=== PATIENT | female | born 1930 | race Caucasian/White ===

== ENCOUNTER 2019-05-08 20:44 | Emergency (ER) | payer OTHER ==
[~2019-05-08] VITALS: Ht 149.9 cm; Wt 49.9 kg
[2019-05-08 20:44] VITALS: BP_SYST 146
[~2019-05-08 20:44] MED LIST: NITR0.4T47 SL
--- NOTE | 2019-05-08 20:44 | NUR ---
Patient to ER bed 1 to gown for evaluation. Side rails up.
--- NOTE | 2019-05-08 20:55 | NUR ---
ER at bedside examining patient.
--- NOTE | 2019-05-08 20:55 | NUR ---
Pt brought in by ambulance for medical clearance to be admitted to [facility] facility. Pt awake, alert, mildly confused. normal mentation for patient. Pt denies chest pain, nausea, vomiting, diarrhea, shortness of breath. Pt denies any other complaint at this time. Pt appears to be in no acute distress at this time resting comfortably in ed bed without complaint. Pt Vss, given blanket for comfort.
[2019-05-08 21:20] LABS: BASOPHILS # (AUTO) 0.1 K/uL (0.0-0.2); BASOPHILS % (AUTO) 0.9 % (0.0-2.0); EOSINOPHILS # (AUTO) 0.1 K/uL (0.0-0.4); EOSINOPHILS % (AUTO) 1.4 % (0.0-4.0); HEMATOCRIT 37.3 % (36-48); HEMOGLOBIN 12.6 g/dL (12.0-16.0); LYMPHOCYTES # (AUTO) 1.1 K/uL (1.0-5.5); LYMPHOCYTES % (AUTO) 16.8 % (20.5-51.5); MEAN CORPUSCULAR HEMOGLOBIN 31 pg (27-31); MEAN CORPUSCULAR HGB CONC 34 % (32-36); MEAN CORPUSCULAR VOLUME 91 fL (79.0-98.0); MONOCYTES # (AUTO) 0.7 K/uL (0.0-1.0); MONOCYTES % (AUTO) 11.1 % (1.7-9.3); NEUTROPHILS # (AUTO) 4.5 K/uL (1.8-7.7); NEUTROPHILS % (AUTO) 69.8 % (40.0-70.0); PLATELET COUNT (AUTO) 298 K/uL (130-430); RED CELL DISTRIBUTION WIDTH 15.4 % (9.0-15.0); WHITE BLOOD COUNT (AUTO) 6.5 K/uL (4.8-10.8)
--- NOTE | 2019-05-08 21:27 | NUR ---
MRSA Swab performed on patient
[2019-05-08 21:39] LABS: ANION GAP 6 (5-15); CALCIUM 8.5 mg/dL (8.4-11.0); CHLORIDE 93 mmol/L (98-107); CREATININE 0.81 mg/dL (0.55-1.30); GLUCOSE 125 mg/dL (70-99); SODIUM SERUM 125 mmol/L (136-145); UREA NITROGEN, BLOOD 15 mg/dL (8-21)
[2019-05-08 21:46] LABS: ALANINE AMINOTRANSFERASE 29 U/L (12-78); ALBUMIN 3.4 g/dL (3.4-4.8); ASPARTATE AMINOTRANSFERASE 31 U/L (10-37); TOTAL BILIRUBIN 0.4 mg/dL (0.0-1.0)
--- NOTE | 2019-05-08 22:27 | NUR ---
Pt resting comfortably in ED bed. Additional blanket provided for comfort.
--- NOTE | 2019-05-08 23:13 | NUR ---
Pt provided urine sample
[2019-05-08 23:16] LABS: BILIRUBIN,URINE NEGATIVE (NEGATIVE); CLARITY/URINE CLEAR (CLEAR); COLOR,URINE YELLOW (YELLOW); GLUCOSE,URINE NEGATIVE (NEGATIVE); KETONES,URINE NEGATIVE (NEGATIVE); LEUKOCYTE ESTERASE ,URINE TRACE (NEGATIVE); NITRITE, URINE NEGATIVE (NEGATIVE); PROTEIN URINE NEGATIVE (NEGATIVE); UROBILINOGEN,URINE 0.2 (0.2-1.0)
[2019-05-08 23:17] LABS: BLOOD, URINE TRACE (NEGATIVE)
[2019-05-08 23:24] LABS: BACTERIA,URINE FEW /HPF (None Seen)
[2019-05-08 23:27] LABS: BARBITURATE, URINE NEGATIVE (NEG <=200); BENZODIAZEPINE, URINE NEGATIVE (NEG <=150); CANNABINOID, URINE NEGATIVE (NEG <=50); COCAINE, URINE NEGATIVE (NEG <=150); METHAMPHETAMINES SCREEN,URINE NEGATIVE (NEG <=500); OPIATE, URINE NEGATIVE (NEG <=100); PHENCYCLIDINE SCREEN,URINE NEGATIVE (NEG <=25); UR TRICYCLIC ANTIDEPRESSANTS NEGATIVE (NEG <=300); URINE AMPHETAMINE NEGATIVE (NEG <=500); URINE METHADONE NEGATIVE (NEG <=200); URINE OXYCODONE SCREEN NEGATIVE (NEG <=100); URINE PROPOXYPHENE SCREEN NEGATIVE (NEG <=300)
[2019-05-08] MEDS ORDERED: NACL 0.9% 1,000 ML IV ONE (23:30)
--- NOTE | 2019-05-09 00:12 | NUR ---
Pt resting comfortably in ED bed. Awaiting completion of IV fluids and re-draw of labs.
[2019-05-09 02:09] LABS: ANION GAP 6 (5-15); CALCIUM 7.8 mg/dL (8.4-11.0); CHLORIDE 98 mmol/L (98-107); GLUCOSE 98 mg/dL (70-99); POTASSIUM 3.9 mmol/L (3.5-5.1); SODIUM SERUM 128 mmol/L (136-145); UREA NITROGEN, BLOOD 13 mg/dL (8-21)
--- NOTE | 2019-05-09 02:15 | NUR ---
Pt resting in ED bed Comfortably. Pt respiratory rate and effort unlabored, regular. Pt showing no acute signs of distress.
--- NOTE | 2019-05-09 02:18 | NUR ---
Pt assisted to use restroom
--- NOTE | 2019-05-09 04:26 | NUR ---
Pt resting in ED bed Comfortably. Pt respiratory rate and effort unlabored, regular. Pt showing no acute signs of distress.
[2019-05-09] MEDS ORDERED: NACL 0.9% 1,000 ML IV ONE (05:15)
[2019-05-09 08:13] LABS: ANION GAP 5 (5-15); CALCIUM 7.9 mg/dL (8.4-11.0); CHLORIDE 102 mmol/L (98-107); CREATININE 0.68 mg/dL (0.55-1.30); GLUCOSE 78 mg/dL (70-99); POTASSIUM 4.1 mmol/L (3.5-5.1); SODIUM SERUM 132 mmol/L (136-145); UREA NITROGEN, BLOOD 11 mg/dL (8-21)
[2019-05-09 10:21] VITALS: BP_SYST 169
== END 2019-05-09 10:21 ==
LOC: SED 20:44
DX: E87.1 Hypo-osmolality and hyponatremia (principal); Z02.89 Encounter for other administrative examinations
CPT/HCPCS: 36415; 80048; 80053; 80307; 81000; 84443; 85025; 87081; 87086; 99285; J7030 ×2

== ENCOUNTER 2019-05-09 22:09 | Outpatient (CLI) | payer OTHER | END 2019-05-09 23:00 | disposition home or self-care (01) | LOC: SLB 22:09 | PROVIDERS: ATTEND Psychiatry & Neurology Psychiatry | DX: Z00.00 Encounter for general adult medical examination without abnormal findings (principal) | CPT/HCPCS: 87081 ==

== ENCOUNTER 2019-05-11 09:42 | Outpatient (CLI) | payer OTHER ==
[2019-05-11 11:14] LABS: ANION GAP 3 (5-15); CALCIUM 8.9 mg/dL (8.4-11.0); CHLORIDE 96 mmol/L (98-107); CHOLESTEROL 214 mg/dL (<200); CREATININE 0.68 mg/dL (0.55-1.30); GLUCOSE 74 mg/dL (70-99); HDL CHOLESTEROL 63 mg/dL (>55); LDL CHOLESTEROL 140 mg/dL (<100); POTASSIUM 4.1 mmol/L (3.5-5.1); SODIUM SERUM 127 mmol/L (136-145); TRIGLYCERIDES 57 mg/dL (30-150); UREA NITROGEN, BLOOD 8 mg/dL (8-21)
[2019-05-11 11:39] LABS: THYROID STIMULATING HORMONE 3.47 uIu/mL (0.36-3.74)
== END 2019-05-11 15:00 | disposition home or self-care (01) ==
LOC: SLB 09:42
PROVIDERS: ATTEND Psychiatry & Neurology Psychiatry
DX: Z00.00 Encounter for general adult medical examination without abnormal findings (principal)
CPT/HCPCS: 36415; 80048; 80061; 83036; 84443-TC; 87081

== ENCOUNTER 2019-05-18 14:48 | Outpatient (CLI) | payer OTHER ==
[2019-05-18 15:52] LABS: ANION GAP 9 (5-15); CALCIUM 8.3 mg/dL (8.4-11.0); CHLORIDE 87 mmol/L (98-107); CREATININE 0.83 mg/dL (0.55-1.30); GLUCOSE 152 mg/dL (70-99); POTASSIUM 4.1 mmol/L (3.5-5.1); UREA NITROGEN, BLOOD 14 mg/dL (8-21)
[2019-05-18 15:58] LABS: SODIUM SERUM 119 mmol/L (136-145)
[2019-05-19] MEDS ORDERED: FAMO20TA8 PO (00:19)
[2019-05-19] MEDS ORDERED: LISI-652 PO (00:19)
[2019-05-19] MEDS ORDERED: HYDR-4038 PO (00:19)
[2019-05-19] MEDS ORDERED: ACET325T53 PO (00:19)
[2019-05-19] MEDS ORDERED: IBUP-2018 PO (00:19)
[2019-05-19] MEDS ORDERED: MAG-86 PO (00:19)
[2019-05-19] MEDS ORDERED: MEMA5TAB PO (00:19)
[2019-05-19] MEDS ORDERED: DOCU-144 PO (00:19)
[2019-05-19] MEDS ORDERED: MOM PO (00:19)
[2019-05-19] MEDS ORDERED: ZOLP5TAB2 PO (00:19)
[2019-05-19] MEDS ORDERED: LORA-258 PO (00:19)
== END 2019-05-18 21:07 | disposition home or self-care (01) ==
LOC: SLB 14:48
PROVIDERS: ATTEND Psychiatry & Neurology Psychiatry
DX: F29 Unspecified psychosis not due to a substance or known physiological condition (principal); I10 Essential (primary) hypertension; E87.1 Hypo-osmolality and hyponatremia
CPT/HCPCS: 36415; 80048

== ENCOUNTER 2019-05-18 17:31 | Inpatient (IN) | payer OTHER ==
[~2019-05-18] VITALS: Ht 142.2 cm; Wt 45.9 kg
--- NOTE | 2019-05-18 22:59 | NUR ---
LATE ENTRY FOR 2229 : PT GOT ADMITTED DIRECT ADMIT FROM [facility] UNDER DR SAHA WITH THE DIAGNOSIS OF HYPONATREMIA . CAME TO THE FLOOR AT 2229 , LATE ENTRY DUE TO LATE ADMITTING BY THE ADMITTING DEPT . PRIMARY RN MADE AWARE OF THE ADMISSION
[2019-05-18 23:02] VITALS: BP_SYST 138
--- NOTE | 2019-05-18 23:25 | NUR ---
BELONGING CHECKS : BVELONGINS CHECKED , PT STATED SHE HAD 150 DOLLARS AND " OTHER PEOPLE TOOK IT" SHOWED HER THE ENVELOP SHE CAME IN WITH SHE OPENED TO CHECK WETHER HER MONEY IS IN , NOTICED THAT PT HAS DOLLARS IN HER COIN PURSE . WITH THE PRESENCE OF BRYAN FREY AND PT RN CHECKED MONEY . $ 20 X3, $ 10 X2, $ 5 X4, $ 1 X6= $ 106 , COINS : 1 CENTS X 7 ,5 CENTS X13 , 10 CENTS X5, 25 CENTS X9 , 50 CENTS X5 , $1COINS X7 . PT REFUSED TO KEEP THE MONEY IN THE SAFE PT STATED " SHE IS GOING TO LOOSE" EXPLAINED TO THE PT . PT REFUSED .
[2019-05-18] MEDS ORDERED: D5NS 1,000 ML IV SCH (23:30)
--- NOTE | 2019-05-18 23:30 | NUR ---
CALLED: DR MARIA A HANNA [facility] THE DIAGNOSIS OF ACUTE HYPONATREMIA , DR CALLAWAY CONSULT FOR PSYCHOSIS , D5 NS AT 75 CC/HR , RESEME ALL MEDICATION FROM [facility] EXCEPT DIURETICS/ HYDROCHLOROTHIAZIDE , DIET MECHANICAL SOFT , CBC , BMP AND THYROID PANEL IN AM , FALL PRECAUTION . ALL ORDERS NOTIFIED TO THE PRIMARY RN
--- NOTE | 2019-05-19 | NUR ---
ROSE ESTRADA CALLED, AND TALKED WITH CASSIE ALVAREZ , CLARIFIED MEDICATION ORDER , ALSO INFORMED HER THAT PT IS SAYING THAT SHE HAD 150 DOLLARS , CASSIE ALVAREZ STATED THAT "ALL HER MONEY IS IN THE ENVELOP AND INSIDE THE COIN PURSE" .
[2019-05-19] MEDS ORDERED: AL HYDROX PO PRN (00:15)
[2019-05-19] MEDS ORDERED: ACETAMINOPHEN 325 MG TABLET PO PRN (00:15)
[2019-05-19] MEDS ORDERED: ZOLPIDEM TARTRATE 5 MG TABLET PO PRN (00:15)
[2019-05-19] MEDS ORDERED: hydrALAZINE HCL 25 MG TABLET PO PRN (00:15)
[2019-05-19] MEDS ORDERED: MAG HYDROX PO PRN (00:15)
[2019-05-19] MEDS ORDERED: SIMETH PO PRN (00:15)
[2019-05-19] MEDS ORDERED: IBUPROFEN 400 MG TABLET PO PRN (00:15)
[2019-05-19] MEDS ORDERED: MILK OF MAGNESIA 30 ML UDC PO PRN (00:15)
[2019-05-19] MEDS ORDERED: LORazepam 1 MG TABLET PO PRN (00:15)
[2019-05-19] MEDS ORDERED: ACET325T53 PO (00:19)
[2019-05-19] MEDS ORDERED: MAG-86 PO (00:19)
[2019-05-19] MEDS ORDERED: IBUP-2018 PO (00:19)
[2019-05-19] MEDS ORDERED: MEMA5TAB PO (00:19)
[2019-05-19] MEDS ORDERED: LISI-652 PO (00:19)
[2019-05-19] MEDS ORDERED: DOCU-144 PO (00:19)
[2019-05-19] MEDS ORDERED: FAMO20TA8 PO (00:19)
[2019-05-19] MEDS ORDERED: LORA-258 PO (00:19)
[2019-05-19] MEDS ORDERED: ZOLP5TAB2 PO (00:19)
[2019-05-19] MEDS ORDERED: HYDR-4038 PO (00:19)
[2019-05-19] MEDS ORDERED: MOM PO (00:19)
--- NOTE | 2019-05-19 00:30 | NUR ---
NEW IV STARTED : PRIMARY RN REQUESTED TO START NEW IV , IV STARTED TO THE LEFT FA 22 G X 1 ATTEMPT ; GOOD BLOOD RETURN NOTICED , IV FLUSHED WELL , COVERED WITH KERLIX( PT IS CONFUSED ).PRIMARY RN NOTIFIED
--- NOTE | 2019-05-19 01:10 | NUR ---
NOTICED THAT PRIMARY RN DIDNT START THE IV FLUID YET , IV FLUID STARTED TO THE LEFT FA 22 G; AT 75 CC/HR , NO S/S OF ANY INFILTRATION NOTED .
--- NOTE | 2019-05-19 02:49 | NUR ---
Psych consultation paged Reason for consultation: Psychosis Was consult called: Yes Person who was notified: Shelbie Consulting Physician: Dr Lazaro Director Corporate Phone Number: [phone] Director Corporate Specialty: Psychiatry Ordered By: Dr Flores Facesheet was faxed to office; Fax #: .
[2019-05-19] MEDS ORDERED: MAG-AL HYDROX/SIMETH 30 ML UDC PO PRN (03:00)
[2019-05-19 06:18] VITALS: BP_SYST 138
[2019-05-19 07:38] LABS: BASOPHILS % (AUTO) 0.6 % (0.0-2.0); EOSINOPHILS # (AUTO) 0.1 K/uL (0.0-0.4); MEAN CORPUSCULAR HEMOGLOBIN 31 pg (27-31); MEAN CORPUSCULAR HGB CONC 34 % (32-36); MEAN CORPUSCULAR VOLUME 89 fL (79.0-98.0); MONOCYTES # (AUTO) 0.8 K/uL (0.0-1.0); MONOCYTES % (AUTO) 15.1 % (1.7-9.3); NEUTROPHILS # (AUTO) 3.6 K/uL (1.8-7.7); NEUTROPHILS % (AUTO) 64.3 % (40.0-70.0); PLATELET COUNT (AUTO) 321 K/uL (130-430); RED BLOOD CELL COUNT(AUTO) 3.58 MIL/uL (4.2-6.2); RED CELL DISTRIBUTION WIDTH 14.6 % (9.0-15.0); WHITE BLOOD COUNT (AUTO) 5.6 K/uL (4.8-10.8)
--- NOTE | 2019-05-19 07:41 | NUR ---
RN OPENING NOTE REPORT WAS ENDORSED BY NIGHT NURSE. PATIENT IS AWAKE AND ALERT SITTING UP IN BED. PATIENT EDUCATED MESSENGER FLOORPERSON LIGHT FOR ASSISTANCE. CALL LIGHT IS WITH PATIENT. PATIENT IS CLOSE TO NURSES STATION. PATIENT HAS NO COMPLAINTS AT THIS TIME. WILL CONTINUE TO MONITOR.
[2019-05-19 08:04] LABS: ALANINE AMINOTRANSFERASE 18 U/L (12-78); ALBUMIN 2.9 g/dL (3.4-4.8); ANION GAP 5 (5-15); ASPARTATE AMINOTRANSFERASE 23 U/L (10-37); CALCIUM 8.3 mg/dL (8.4-11.0); CHLORIDE 92 mmol/L (98-107); CREATININE 0.63 mg/dL (0.55-1.30); FREE T4 (FREE THYROXINE) 0.9 ng/dl (0.8-1.5); GLUCOSE 96 mg/dL (70-99); SODIUM SERUM 124 mmol/L (136-145); THYROID STIMULATING HORMONE 1.78 uIu/mL (0.36-3.74); TOTAL BILIRUBIN 0.3 mg/dL (0.0-1.0); UREA NITROGEN, BLOOD 12 mg/dL (8-21)
[2019-05-19 08:25] VITALS: BP_SYST 142
[2019-05-19] MEDS: LISINOPRIL 5 MG TABLET PO SCH (08:32)
[2019-05-19] MEDS: DOCUSATE SODIUM 100 MG CAPSULE PO SCH ×2 (08:32→21:00)
[2019-05-19] MEDS: FAMOTIDINE 20 MG TABLET PO SCH (08:32)
--- NOTE | 2019-05-19 08:33 | NUR ---
MEDICATION PATIENT IS REFUSING STOOL SOFTENER AND PEPCID, PATIENT EDUCATED AND IS STILL REFUSING. PATIENT IS AWAKE AND ALERT NO COMPLAINTS AT THIS TIME. ALL SAFETY PRECAUTIONS IN PLACE. CLOSE TO NURSERS STATION. CALL LIGHT IS WITH HER EDUCATED TO USE CALL LIGHT FOR ASSISTANCE. WILL CONTINUE TO MONITOR.
[2019-05-19] MEDS ORDERED: MEMANTINE HCL 5 MG TABLET PO SCH (09:00)
[2019-05-19] MEDS ORDERED: SODIUM CHLORIDE 3% *HI-ALERT* 500 ML IV SCH (10:15)
[2019-05-19 10:23] LABS: PHOSPHORUS 3.3 mg/dL (2.7-4.5)
--- NOTE | 2019-05-19 10:29 | NUR ---
CONSULTATION PAGED/CALLED Reason for Consultation: [] HYPONATREMIA Person Who was Notified: [] DUDLEY Consulting Physician: [] DR KENNEDY Phlebotomy Coordinator Specialty: [] PICKER/PULLER Ordering Physician: [] DR Darline AVILES
--- NOTE | 2019-05-19 11:01 | NUR ---
IV FLUID PATIENTS IV FLUID HUNG PER ORDER. PATIENT ASSISTED TO BATHROOM AND BACK TO BED. PATIENT GAIT IS WEAK BUT STABLE RECOMMEND TO HAVE NURSE WITH PATIENT WHEN AMBULATING. PATIENT EDUCATED HELP DESK ENGINEER LIGHT FOR ASSISTANCE. CALL LIGHT IS WITH PATIENT PATIENT HAS NO COMPLAINTS AT THIS TIME. PATIENTS BREATHING IS EQUAL AND NON LABORED. WILL CONTINUE TO MONITOR. Addendum: 05/19/19 at 1950 by Kika Augustin RN per patient does not need to be on telemonitor
[2019-05-19 12:00] VITALS: BP_SYST 113
--- NOTE | 2019-05-19 13:50 | NUR ---
RN ROUNDING PATIENT IS AWAKE AND ALERT, NO SIGNS OF ANY DISTRESS, SITTING IN BED. PATIENT HAS ALL SAFETY PRECAUTIONS IN PLACE. CALL LIGHT IS WITH PATIENT. EDUCATED TO USE CALL LIGHT FOR ASSISTANCE. PATIENT HAS NO COMPLAINTS AT THIS TIME. WILL CONTINUE TO MONITOR.
--- NOTE | 2019-05-19 14:43 | NUR ---
DR. KENNEDY AT NURSES STATION. PATIENT IS AWAKE AND ALERT, iv FLUID STOP ORDERED BY MD. PATIENT HAS ALL SAFETY PRECAUTIONS IN PLACE. CALL LIGHT IS WITH PATIENT. PATIENT EDUCATED TO USE CALL LIGHT FOR ASSISTANCE. PATIENT HAS NO OTHER NEEDS AT THIS TIME. WILL CONTINUE OT MONITOR. PATIENT IS CLOSE TO NURSES STATION.
[2019-05-19] MEDS: NACL 0.9% 1,000 ML IV SCH (15:34)
--- NOTE | 2019-05-19 15:37 | NUR ---
IV FLUID PATIENT IS AWAKE AND ALERT NO SIGNS OF ANY DISTRESS, BREATHING IS EQUAL AND NON LABORED. PATIENT'S NEW IV FLUID HUNG PER ORDER. PATIENT EDUCATED EQUIPMENT LEAD LIGHT FOR ASSISTANCE. CALL LIGHT IS WITH PATIENT. PATIENT HAS NO OTHER NEEDS. PATIENT IS CLOSE TO NURSES STATION. WILL CONTINUE TO MONITOR.
[2019-05-19 15:45] LABS: ANION GAP 7 (5-15); CHLORIDE 94 mmol/L (98-107); CREATININE 0.76 mg/dL (0.55-1.30); GLUCOSE 111 mg/dL (70-99); POTASSIUM 4.4 mmol/L (3.5-5.1); SODIUM SERUM 125 mmol/L (136-145); UREA NITROGEN, BLOOD 12 mg/dL (8-21)
[2019-05-19 16:00] VITALS: BP_SYST 132
--- NOTE | 2019-05-19 16:13 | NUR ---
DCPA and SS contact DIRECTOR STATE PHARMACY met with Pt. at bedside, he was alert and awake, fairly oriented. Pt was confused and able to give some information but would derail. Pt is a transfer from [facility]. Hx of dementia. Pt. was residing in at [facility] facility, Position Clerk Bia Mtz is listed as emergency contact , however, there is no relation to Pt. Pt is not conserved and has no family contact.DIRECTOR STATE PHARMACY confirmed this info with Bia and Pt. Pt. ambulates and requires moderate assistance with ADLs. Consulted w/ social and human services assistant at [facility] for DC plan. Pt admitted for 9 days and stabilized DC was to transfer to [facility]. DIRECTOR STATE PHARMACY contacted [facility] admitting department who indicated that they will accept Pt. back into care upon DC from [facility]. CM Will remain available for DC planning needs.
--- NOTE | 2019-05-19 18:54 | NUR ---
rn closing note patient is awake and alert sitting up in bed no signs of any distress, breathing is equal and non labored. patient has all safety precautions in place. call light is with patent educated to use call light for assistance. no other needs at this time.
[2019-05-19 20:00] VITALS: BP_SYST 134
[2019-05-20] VITALS: BP_SYST 120
--- NOTE | 2019-05-20 08:00 | NUR ---
0800 AWAKE ALERT WITH EPISODES OF CONFUSION ABLE TO EXPRESS HER NEEDS ABLE TO MOVE ALL HER EXTREMITIES
--- NOTE | 2019-05-20 10:00 | NUR ---
1000 SITTING IN BED COMFORTABLY NO PAIN
[2019-05-20] MEDS: FAMOTIDINE 20 MG TABLET PO SCH (10:23)
[2019-05-20] MEDS: LISINOPRIL 5 MG TABLET PO SCH (10:23)
[2019-05-20] MEDS: DOCUSATE SODIUM 100 MG CAPSULE PO SCH ×2 (10:23→21:00)
[2019-05-20] MEDS: NACL 0.9% 1,000 ML IV SCH ×2 (10:30→17:45)
[2019-05-20 10:48] VITALS: BP_SYST 147
[2019-05-20 11:38] LABS: ANION GAP 6 (5-15); CALCIUM 8.5 mg/dL (8.4-11.0); CHLORIDE 98 mmol/L (98-107); CREATININE 0.55 mg/dL (0.55-1.30); GLUCOSE 102 mg/dL (70-99); POTASSIUM 4.2 mmol/L (3.5-5.1); SODIUM SERUM 129 mmol/L (136-145); UREA NITROGEN, BLOOD 12 mg/dL (8-21)
--- NOTE | 2019-05-20 12:00 | NUR ---
1200 BOTH BREAKFAST AND LUNCH SERVE ATE WITH FAIR APPETITE
--- NOTE | 2019-05-20 14:00 | NUR ---
1400 COMFORATABLE NO PAIN
[2019-05-20 15:23] VITALS: BP_SYST 149
[2019-05-20 16:00] VITALS: BP_SYST 147
[2019-05-20 20:00] VITALS: BP_SYST 127
--- NOTE | 2019-05-20 22:12 | NUR ---
Patient in bed. No acute distress noted. Will continue to monitor.
--- NOTE | 2019-05-21 06:08 | NUR ---
Patient continues to refuse IV fluids. Will continue to monitor.
[2019-05-21] MEDS: NACL 0.9% 1,000 ML IV SCH ×2 (06:14→20:05)
[2019-05-21 06:36] LABS: BASOPHILS % (AUTO) 0.5 % (0.0-2.0); EOSINOPHILS # (AUTO) 0.1 K/uL (0.0-0.4); EOSINOPHILS % (AUTO) 1.7 % (0.0-4.0); HEMATOCRIT 32.4 % (36-48); HEMOGLOBIN 11.2 g/dL (12.0-16.0); LYMPHOCYTES # (AUTO) 1.3 K/uL (1.0-5.5); LYMPHOCYTES % (AUTO) 17.7 % (20.5-51.5); MEAN CORPUSCULAR HEMOGLOBIN 31 pg (27-31); MEAN CORPUSCULAR HGB CONC 35 % (32-36); MEAN CORPUSCULAR VOLUME 90 fL (79.0-98.0); MONOCYTES # (AUTO) 0.8 K/uL (0.0-1.0); MONOCYTES % (AUTO) 10.8 % (1.7-9.3); NEUTROPHILS # (AUTO) 4.9 K/uL (1.8-7.7); NEUTROPHILS % (AUTO) 69.3 % (40.0-70.0); PLATELET COUNT (AUTO) 338 K/uL (130-430); RED CELL DISTRIBUTION WIDTH 14.7 % (9.0-15.0); WHITE BLOOD COUNT (AUTO) 7.1 K/uL (4.8-10.8)
[2019-05-21 06:59] LABS: ALANINE AMINOTRANSFERASE 20 U/L (12-78); ALBUMIN 2.9 g/dL (3.4-4.8); ANION GAP 4 (5-15); ASPARTATE AMINOTRANSFERASE 20 U/L (10-37); CALCIUM 8.3 mg/dL (8.4-11.0); CHLORIDE 96 mmol/L (98-107); GLUCOSE 75 mg/dL (70-99); POTASSIUM 3.7 mmol/L (3.5-5.1); SODIUM SERUM 126 mmol/L (136-145); TOTAL BILIRUBIN 0.3 mg/dL (0.0-1.0); UREA NITROGEN, BLOOD 10 mg/dL (8-21)
[2019-05-21 08:00] VITALS: BP_SYST 156
--- NOTE | 2019-05-21 08:00 | NUR ---
Initial notes- Pt in bed, eating breakfast. refusing IVF. Denies any pain or discomfort. ambulate to the bathroom with supervision. safety precaution observed. Call light within reach. Bed alarm on. Update plan of care.
[2019-05-21] MEDS: DOCUSATE SODIUM 100 MG CAPSULE PO SCH ×2 (08:46→21:00)
[2019-05-21] MEDS: FAMOTIDINE 20 MG TABLET PO SCH (08:46)
[2019-05-21] MEDS: LISINOPRIL 5 MG TABLET PO SCH (08:47)
--- NOTE | 2019-05-21 10:31 | NUR ---
Resting at this time. denies any pain or discomfort. still refusing IVF.
[2019-05-21 12:00] VITALS: BP_SYST 120
--- NOTE | 2019-05-21 13:28 | NUR ---
Notes- sitting at the edge of the bed, Eating chicken sandwich salad, does not want her lunch tray earlier. denies any pain, no signs of agitation so far. she does not want to put the IVF because she said she keeps going in the bathroom.
[2019-05-21] MEDS ORDERED: SODIUM CHLORIDE 500 MG TABLET PO ONE (14:30)
[2019-05-21 16:00] VITALS: BP_SYST 138
--- NOTE | 2019-05-21 18:12 | NUR ---
Notes- Pt is eating dinner, no distress noted. still needs to collect UA. Will endorse.
[2019-05-21 20:00] VITALS: BP_SYST 156
--- NOTE | 2019-05-21 22:00 | NUR ---
Patient anxious and hesitant to take medications this pm. Patient agreed to take sodium tablets but declined colace. Shis AOx 2-3. No distress noted. will cotinue to monitor.
[2019-05-21] MEDS: SODIUM CHLORIDE 500 MG TABLET PO SCH (22:05)
[2019-05-22 00:54] VITALS: BP_SYST 127
[2019-05-22 07:30] LABS: ANION GAP 6 (5-15); CALCIUM 8.8 mg/dL (8.4-11.0); CHLORIDE 96 mmol/L (98-107); CREATININE 0.68 mg/dL (0.55-1.30); GLUCOSE 81 mg/dL (70-99); POTASSIUM 4.1 mmol/L (3.5-5.1); SODIUM SERUM 131 mmol/L (136-145); THYROID STIMULATING HORMONE 2.14 uIu/mL (0.36-3.74); UREA NITROGEN, BLOOD 10 mg/dL (8-21)
[2019-05-22 07:59] VITALS: BP_SYST 146
--- NOTE | 2019-05-22 08:00 | NUR ---
Note Pt sitting on side of bed and eating her breakfast. Pt refuses IVF's - states she does not needs it, IVF's are making her urinate alot and she does not want to do so. IV saline locked at this time from last night. IV in the left forearm intact and patent at this time. No needs noted. Call light within reach. Pt next to nurses' station for close observation.
[2019-05-22] MEDS: DOCUSATE SODIUM 100 MG CAPSULE PO SCH ×2 (09:00→20:20)
[2019-05-22] MEDS: LISINOPRIL 5 MG TABLET PO SCH (09:15)
[2019-05-22] MEDS: SODIUM CHLORIDE 500 MG TABLET PO SCH ×2 (09:15→20:20)
[2019-05-22] MEDS: FAMOTIDINE 20 MG TABLET PO SCH (09:16)
[2019-05-22] MEDS: NACL 0.9% 1,000 ML IV SCH (09:25)
--- NOTE | 2019-05-22 10:00 | NUR ---
Note Pt took her PO medications crushed after much explanation and persuasion. Refused Colace PO.
[2019-05-22 12:00] VITALS: BP_SYST 139
--- NOTE | 2019-05-22 12:25 | NUR ---
Note Pt sitting on side of bed eating her lunch. No SOB/resp distress or pain/discomfort noted at this time. Pt continuously to ambulate in room to the sink or restroom independently. Pt next to nurses' station for close observation for care and needs. Call light withinr each.
[2019-05-22 16:00] VITALS: BP_SYST 138
--- NOTE | 2019-05-22 16:30 | NUR ---
Note Dr Kristen Perez at pt's bedside assessing pt. stated pt may return to [facility] in [facility] when bed available tomorrow am.
--- NOTE | 2019-05-22 18:35 | NUR ---
Note Pt sitting on side of bed eating her dinner. No SOB/resp distress or pain/discomfort was noted at this time. Pt was checked on q1' and PRN all shift for needs and care. IV in left arm intact and patent. No needs noted at this time. Pt ambulates in room with steady gait. Call light within reach. Pt has been next to nurses' station all shift. Pt maintained with safety precautions all shift.
--- NOTE | 2019-05-22 19:10 | NUR ---
CHANGE OF SHIFT; pt. awake, watching tv when received, no complaints manifested. call light within reach. will assess later. pt.room close to nurses station.
[2019-05-22 20:15] VITALS: BP_SYST 119
--- NOTE | 2019-05-22 20:15 | NUR ---
NOTES: VS checked, no complaints noted at this time. moves around and ambulates to the restroom. IV lock on left arm area. call light within reach.
--- NOTE | 2019-05-22 22:00 | NUR ---
NOTES: pt. called telling me that her legs getting numb and getting poor circulation, informed her will tell MD tomorrow. applied lotion on both legs and feet.
[2019-05-22 23:21] VITALS: BP_SYST 147
--- NOTE | 2019-05-23 00:19 | NUR ---
NOTES: pt. still awake, watching tv. no further complaints. pt. needs attended.
[2019-05-23 01:00] VITALS: BP_SYST 121
--- NOTE | 2019-05-23 02:30 | NUR ---
NOTES: pt. sleeping, no acute distress.continue to monitor.
--- NOTE | 2019-05-23 04:45 | NUR ---
NOTES: pt. remain sleeping. no acute distress. continue to monitor.
--- NOTE | 2019-05-23 06:00 | NUR ---
NOTES: pt. comfortably sleeping. awakened, Dr. Jones here, seen pt, will be [facility], will follow up with day shift.
--- NOTE | 2019-05-23 06:40 | NUR ---
CLOSING NOTES; pt. went back to sleep, needs attended. for further assistance. call light within reach.
--- NOTE | 2019-05-23 07:30 | NUR ---
Nurses Notes Pt aox4 even and unlabored breathing . No SOB/resp distress or pain/discomfort was noted at this time. vital wnl, IV in left arm intact and patent. No needs noted at this time. Pt ambulates in room with steady gait. Call light within reach. Pt maintained with safety precautions all shift.
[2019-05-23 07:45] LABS: ALANINE AMINOTRANSFERASE 15 U/L (12-78); ALBUMIN 2.9 g/dL (3.4-4.8); ANION GAP 4 (5-15); ASPARTATE AMINOTRANSFERASE 21 U/L (10-37); CALCIUM 8.4 mg/dL (8.4-11.0); CHLORIDE 98 mmol/L (98-107); CREATININE 0.68 mg/dL (0.55-1.30); GLUCOSE 74 mg/dL (70-99); POTASSIUM 4.2 mmol/L (3.5-5.1); SODIUM SERUM 132 mmol/L (136-145); TOTAL BILIRUBIN 0.3 mg/dL (0.0-1.0); UREA NITROGEN, BLOOD 12 mg/dL (8-21)
[2019-05-23 08:00] VITALS: BP_SYST 126
[2019-05-23] MEDS: SODIUM CHLORIDE 500 MG TABLET PO SCH ×2 (08:55→20:46)
[2019-05-23] MEDS: DOCUSATE SODIUM 100 MG CAPSULE PO SCH ×2 (08:55→20:46)
[2019-05-23] MEDS: FAMOTIDINE 20 MG TABLET PO SCH (08:56)
[2019-05-23] MEDS: LISINOPRIL 5 MG TABLET PO SCH (08:56)
--- NOTE | 2019-05-23 12:00 | NUR ---
NURSES NOTES PT IN BED TESTING , NO NEED NOTED AT THIS GARDENIA, ABLE TO EAT AND AMBULATE WITHOUT ROOFING MACHINE OPERATOR, SAFETY PRECAUTION IN PLACE WILL CONTINUE TO MONITOR.
--- NOTE | 2019-05-23 12:30 | NUR ---
Nutrition Assessment (short note d/t lack of time) Admit Dx: Hyponatremia A- RD reviewed pt's current EMR including diet Hx, physician notes, nursing notes, pertinent labs/meds/procedures, care trends and care activity. Pt seen resting in bed, confused and restless. Complained that her phone was not working. Per EMR, PO intake 55% average of 3 meals 05/22. Pt is underweight for geriatric age and is not yet meeting adequate nutrition w/ current PO intake. Pt may benefit from ONS. Current Diet Order: Mechanical soft chopped x 4 days Ht: 4'8/ 56 inches Wt: 101#/46 kg BMI: 22.7 kg/m2 (Underweight for Geriatric age) %IBW: 126 IBW: 80#/ 36 kg ESTIMATED NUTRITIONAL REQUIREMENTS CALORIES/DAY: 4606-5256 kcal/day (25-30 kcal/kg CBW for gradual weight gain) PROTEIN/DAY: 46-60 gm/day (1-1.3 gmkg CBW for Geriatric maintenance and preservation of hilary body mass) FLUID/DAY: 1.2L/day (25ml/kg CBW for Geriatric maintenance) D: Inadequate protein-energy intake r/t poor appetite 2/2 altered mental status AEB PO intake meeting <60% of estimated needs. I: * Recommend: Mechanical soft chopped w/ Ensure Enlive TID. ONS will provide additional 1050 kcal and 60 gm protein daily. * Recommend Megace to stimulate appetite and MVI daily. M: Monitor appetite and PO intake w/ goal of pt meeting at least 75% of estimated nutritional needs, labs trending WNL, normal GI function, skin integrity/wt maintenance. E: RD to F/U within 3-5 days JENNIFER ALLEN
--- NOTE | 2019-05-23 12:37 | NUR ---
Dietitian Recommendation * Recommend: Mechanical soft chopped w/ Ensure Enlive TID. ONS will provide additional 1050 kcal and 60 gm protein daily. * Recommend Megace to stimulate appetite and MVI daily. ALEJANDRO, RD
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
--- NOTE | 2019-05-23 19:50 | NUR ---
NURSES NOTES END OF SHIFT REPORT COMPLETED, ALL QUESTION ANSWERED.
[2019-05-23 20:00] VITALS: BP_SYST 126
--- NOTE | 2019-05-23 20:05 | NUR ---
PM SHIFT ASSESSMENT/MD Dr. Perez at patients bedside, no new orders at this time, Dc planning to snf in am, patient sitting up in bed, aox3, vitals stable, denies any pain or discomfort at this time, iv line to left arm intact and patent, saline locked, plan of care discussed with patient, verbalized understanding, compliant, oriented to use call light for nurse assistance, fall and safety measures in place, will monitor.
--- NOTE | 2019-05-23 22:00 | NUR ---
RN ROUNDS Patient awake, sitting up in bed, due medications administered, hs snack given, patient tolerated well, denies any pain or discomfort at this time, safety measures in place, will monitor.
[2019-05-24 00:05] VITALS: BP_SYST 132
--- NOTE | 2019-05-24 00:39 | NUR ---
RN ROUNDS Patient awake, resting quietly in bed, vital signs stable, denies any pain or discomfort at this time, call light within reach, safety measures in place, will monitor.
--- NOTE | 2019-05-24 02:40 | NUR ---
RN ROUNDS Patient asleep, breathing is even and unlabored, call light within reach, fall and safety measures in place, will monitor.
--- NOTE | 2019-05-24 03:59 | NUR ---
RN ROUNDS Patient continues to sleep, breathing is even and unlabored, call light within reach, fall and safety measures in place, will monitor.
--- NOTE | 2019-05-24 06:05 | NUR ---
CLOSING NOTE Patient continues to sleep, respirations even and unlabored, needs attended to, fall and safety measures maintained, call light within reach, will monitor until report given to am nurse.
[2019-05-24] MEDS: DOCUSATE SODIUM 100 MG CAPSULE PO SCH (09:00)
--- NOTE | 2019-05-24 09:00 | NUR ---
Patient awake/alert , ambulate with steady gait, patient concerns when she will be discharge will follow up , needs attended.
[2019-05-24] MEDS: FAMOTIDINE 20 MG TABLET PO SCH (09:05)
[2019-05-24] MEDS: SODIUM CHLORIDE 500 MG TABLET PO SCH (09:05)
[2019-05-24] MEDS: LISINOPRIL 5 MG TABLET PO SCH (09:06)
--- NOTE | 2019-05-24 10:51 | NUR ---
D/C PLANNING: CM SPOKE WITH NURSING ADVISED D/C AWAITING PSYCH CLEARANCE. D/C ORDER FOR D/C BACK TO [facility]. PACKET FAXED TO [facility]. DCP AWAITING PSYCH CLEARANCE TO D.C TO SNF.
--- NOTE | 2019-05-24 11:42 | NUR ---
Patient resting no sign of acute discomfort, safety/fall precaution initiated.
--- NOTE | 2019-05-24 12:10 | NUR ---
Spoke to Dr. Lazaro regarding clearance for discharge to SNF , he will only agree if patient came from the same facility prior to [facility] admission , because it will make patient more confuse and upsetting.
[2019-05-24 12:48] VITALS: BP_SYST 172
[2019-05-24 14:41] VITALS: BP_SYST 144
--- NOTE | 2019-05-24 15:10 | NUR ---
Report given to Jaimee ALVAREZ in [facility] to room 113 A with all the information, leaf size picker time 1600 hour by [facility] transportation.
[2019-05-24 15:20] VITALS: BP_SYST 144
--- NOTE | 2019-05-24 15:30 | NUR ---
DC PLANNING: PATIENT WITH DC ORDER TO [facility] ROOM 113A [facility] NUMBER FOR REPORT [phone] NO NEXT OF KIN TO CONTACT FLOOR LAYER HELPER TIME 1600 TRANSPORTATION SET UP WITH TRANSPORT PHONE [phone] WHEEL CHAIR FLOOR LAYER HELPER NURSING AWARE PACKET TO NURSING UNIT.
--- NOTE | 2019-05-24 16:00 | NUR ---
To [facility] acute SNF via transportation wheelchair with all the belongings taken , packet endorsed to the garbage truck driver., patient alert/oriented x2 ambulatory with vitals sign stable.
[2019-05-24 16:18] VITALS: BP_SYST 158
== END 2019-05-24 16:00 | DRG 641 ==
LOC: SMU 22:30
PROVIDERS: ADMIT Internal Medicine; ATTEND Family Medicine
DX: E87.1 Hypo-osmolality and hyponatremia (principal); F03.90 Unspecified dementia, unspecified severity, without behavioral disturbance, psychotic disturbance, mood disturbance, and anxiety; I10 Essential (primary) hypertension; F29 Unspecified psychosis not due to a substance or known physiological condition; K21.9 Gastro-esophageal reflux disease without esophagitis; Z88.8 Allergy status to other drugs, medicaments and biological substances; Z91.041 Radiographic dye allergy status
CPT/HCPCS: 36415; 80048; 80053; 82533; 82570-TC; 83735-TC; 83930-TC; 83935-TC; 84100-TC; 84302-TC; 84436; 84439; 84443-TC; 85025; 87081; J3490; J7030; J7042